=== PATIENT | male | born 1940 | race Caucasian/White ===

== ENCOUNTER 2018-10-31 09:17 | Day surgery (SDC) | payer MEDICARE ==
[2018-10-31] MEDS ORDERED: COLACE100 MG PO (12:43)
[2018-10-31] MEDS ORDERED: TORADOL PO (12:43)
[2018-10-31] MEDS ORDERED: PERCOCET 5/325M1 TAB PO (12:43)
[2018-10-31 13:13] VITALS: BP 154/72
== END 2018-10-31 13:10 | disposition home or self-care (01) ==
LOC: ORM 09:17
PROVIDERS: ATTEND Surgery
PROC: 0WUF4JZ Supplement Abdominal Wall with Synthetic Substitute, Percutaneous Endoscopic Approach (ICD-10-PCS; principal; 2018-10-31)
DX: K43.2 Incisional hernia without obstruction or gangrene (principal); I25.10 Atherosclerotic heart disease of native coronary artery without angina pectoris; Z95.1 Presence of aortocoronary bypass graft
CPT/HCPCS: J2710